=== PATIENT | male | born 1965 | race American Indian/Alaskan Native ===

== ENCOUNTER 2019-12-22 01:56 | Emergency (ER) | payer SELFPAY ==
[2019-12-22 03:20] LABS: Basophils % (Auto) 1.3 % (0.0-1.8); Eosinophils # (Auto) 0.1 K/mm3 (0.0-0.4); Eosinophils % (Auto) 2.4 % (0.0-4.3); Hematocrit 31.5 % (35.5-45.6); Hemoglobin 11.1 gm/dl (11.8-15.2); Lymphocytes # (Auto) 0.9 K/mm3 (1.2-5.4); Lymphocytes % (Auto) 23.4 % (13.4-35.0); Mean Corpuscular HGB Conc 35 % (32-34); Mean Corpuscular Volume 84 fl (84-94); Monocytes # (Auto) 0.3 K/mm3 (0.0-0.8); Platelet Count 153 K/mm3 (140-440); Red Blood Count 3.76 M/mm3 (3.65-5.03); Red Cell Distribution Width 17.7 % (13.2-15.2)
[2019-12-22 03:34] LABS: Calcium 9.1 mg/dL (8.4-10.2)
[2019-12-22] MEDS ORDERED: MECLIZINE 25 MG TAB PO ONE (06:27)
[2019-12-22] MEDS ORDERED: ONDANSETRON 4 MG ODT TAB PO ONE (06:27)
[2019-12-22] MEDS ORDERED: SODIUM CHLORIDE 0.9% 1000 ML 1,000 ML IV ONE (06:28)
[2019-12-22] MEDS ORDERED: ONDANSETRON 4 MG/2 ML INJ IV ONE (06:28)
--- NOTE | 2019-12-22 06:31 | Emergency Department Report ---
HPI - General Chief Complaint: Headache Time Seen by Provider: 12/22/19 06:08 - HPI HPI: This is a 54-year-old -[place] male presents to the emergency department from home with a complaint of some dizziness, nausea and vomiting since last night. The patient also complains of a generalized headache. The dizziness is a room spinning sensation. He denies any vision change, slurred speech, numbness or paresthesias, or any neurological deficits. He has a past medical history that includes gout, GERD, and hypertension. No recent travel or sick contacts at home. He is an occasional tobacco smoker but denies any illicit drug use. Patient has not taken anything for his symptoms other than his normal home medications. He denies any fever, chest pain, shortness of breath, cough, lower extremity swelling, diaphoresis. ED Past Medical Hx - Past Medical History Previous Medical History?: Yes Hx Hypertension: Yes Hx GERD: Yes Additional medical history: GOUT, Elevated Cholesterol - Surgical History Past Surgical History?: Yes Additional Surgical History: Hernia Repair - Social History Smoking Status: Current Every Day Smoker Substance Use Type: Marijuana - Medications Home Medications: Home Medications Medication Instructions Recorded Confirmed Last Taken Type Meclizine [Antivert] 25 mg PO TID PRN #20 tablet 12/22/19 Unknown Rx Ondansetron [Zofran Odt] 4 mg PO Q8HR PRN #12 tab.rapdis 12/22/19 Unknown Rx ED Review of Systems ROS: Stated complaint: DIZZINESS/HEADACHE/EMESIS Other details as noted in HPI Comment: All other systems reviewed and negative Constitutional: denies: chills, fever Eyes: denies: eye pain, vision change ENT: denies: ear pain, throat pain Respiratory: denies: cough, shortness of breath Cardiovascular: denies: chest pain, palpitations Gastrointestinal: nausea, vomiting. denies: abdominal pain Genitourinary: denies: dysuria, discharge Musculoskeletal: denies: back pain, arthralgia Skin: denies: rash, lesions Neurological: headache, vertigo. denies: weakness Physical Exam - Physical Exam Vital Signs: Vital Signs 12/22/19 02:03 Temperature 98.1 F Pulse Rate 68 Respiratory 12 Rate Blood Pressure 164/102 O2 Sat by Pulse 96 Oximetry Physical Exam: GENERAL: The patient is well-developed well-nourished. HENT: Normocephalic. Atraumatic. Patient has moist mucous membranes. EYES: Extraocular motions are intact. No nystagmus. NECK: Supple. Trachea is midline. CHEST/LUNGS: Clear to auscultation. There is no respiratory distress noted. HEART/CARDIOVASCULAR: Regular. There is no tachycardia. There is no murmur. ABDOMEN: Abdomen is soft, nontender. Patient has normal bowel sounds. SKIN: Skin is warm and dry. NEURO: The patient is awake, alert, and oriented. The patient is cooperative. The patient has no focal neurologic deficits. Normal speech. Cranial nerves II through XII grossly intact. No pronator drift or dysmetria. No facial asymmetry. MUSCULOSKELETAL: There is no tenderness or deformity. There is no limitation range of motion. There is no evidence of acute injury. ED Course Vital Signs 12/22/19 02:03 Temperature 98.1 F Pulse Rate 68 Respiratory 12 Rate Blood Pressure 164/102 O2 Sat by Pulse 96 Oximetry ED Medical Decision Making - Lab Data Result diagrams: 12/22/19 02:59 12/22/19 02:59 - Radiology Data Radiology results: report reviewed CT head/brain wo con INDICATION: headache, dizziness. TECHNIQUE: All CT scans at this location are performed using the following dose modulation technique: Automated exposure control. CONTRAST: None. COMPARISON: None available. FINDINGS: The ventricular system is appropriate in size and configuration without midline shift. Mild low density within the periventricular white matter is typical of chronic small vessel ischemic change. A small lacunar infarct is seen at the right thalamus. Negative for mass, stroke or hemorrhage. Imaged portions of the paranasal sinuses are clear. IMPRESSION: 1. Mild chronic small vessel ischemic change. 2. Chronic lacunar infarct right thalamus. - Medical Decision Making This patient presents to the emergency department with a complaint of some dizziness that appears to be consistent with vertigo, a frontal headache, and some nausea/vomiting. There is been no vomiting since arriving to the emergency department. On examination there is no focal, motor or sensory deficits and his cranial nerves are intact. CT scan of the head without contrast does not show any bleed, shift, mass, ischemia, or any other acute process. Patient's vital signs have been reassuring throughout his ED course including being afebrile. Labs have been mostly unremarkable including CBC, metabolic panel, troponin, TSH and blood alcohol level. There was very mild renal insufficiency with a GFR 55. The patient received antiemetics, Toradol, and Antivert. He was reevaluated multiple times over multiple hours and says he is feeling greatly improved. The patient was seen ambulatory in the emergency department and both appears and feels stable. He will be discharged home to follow-up with primary care and has been given a referral for neurology. He will return to the ER with any worsening of his symptoms or with any acute distress. Critical Care Time: No Critical care attestation.: If time is entered above; I have spent that time in minutes in the direct care of this critically ill patient, excluding procedure time. ED Disposition Clinical Impression: Vertigo, Dizziness, Nausea Hypertension Qualifiers: Hypertension type: essential hypertension Qualified Code(s): I10 - Essential (primary) hypertension Headache Qualifiers: Headache type: unspecified Headache chronicity pattern: unspecified pattern Intractability: not intractable Qualified Code(s): R51 - Headache Disposition: DC-01 TO HOME OR SELFCARE Is pt being admited?: No Condition: Stable Instructions: Vertigo (ED), Acute Headache (ED), Hypertension (ED), Dizziness (ED) Additional Instructions: Please follow-up with a primary care physician in the next few days and I am giving you a referral for some local primary care physicians and clinics. I am also giving you a referral for a local neurologist, Dr. Remy, to follow-up regarding the headache and dizziness. Please take your medications as pre scribed. Return to the emergency department with any worsening of your symptoms or with any acute distress. Prescriptions: Meclizine [Antivert] 25 mg PO TID PRN #20 tablet PRN Reason: Vertigo Ondansetron [Zofran Odt] 4 mg PO Q8HR PRN #12 tab.rapdis PRN Reason: Nausea Referrals: PRIMARY MD JOHN [Primary Care Provider] - 2-3 Days MARTÍN ACUÑA MD [Staff Physician] - 2-3 Days JEFF REMY MD [Referring] - 2-3 Days [facility] [Provider Group] - 2-3 Days Time of Disposition: 10:07
--- NOTE | 2019-12-22 06:31 | XRay Report ---
CHEST 1 VIEW INDICATION: chest pain. COMPARISON: None. FINDINGS: Support devices: None. Heart: Within normal limits. Lungs/Pleura: Mildly diminished lung volumes. No infiltrate. Additional findings: None. IMPRESSION: Mildly diminished lung volumes. Signer Name: Alfredo Larios MD Signed: 12/22/2019 6:27 AM Workstation Name: [id number]
--- NOTE | 2019-12-22 06:58 | Cat Scan Report ---
CT head/brain wo con INDICATION: headache, dizziness. TECHNIQUE: All CT scans at this location are performed using the following dose modulation technique: Automated exposure control. CONTRAST: None. COMPARISON: None available. FINDINGS: The ventricular system is appropriate in size and configuration without midline shift. Mild low density within the periventricular white matter is typical of chronic small vessel ischemic frias ge. A small lacunar infarct is seen at the right thalamus. Negative for mass, stroke or hemorrhage. Imaged portions of the paranasal sinuses are clear. IMPRESSION: 1. Mild chronic small vessel ischemic change. 2. Chronic lacunar infarct right thalamus. Signer Name: Alfredo Larios MD Signed: 12/22/2019 6:53 AM Workstation Name: [id number]
[2019-12-22] MEDS ORDERED: METOCLOPRAMIDE 10 MG/2 ML INJ IV ONE (09:18)
[2019-12-22] MEDS ORDERED: KETOROLAC 30 MG/1 ML INJ IV ONE (09:18)
[2019-12-22 10:23] VITALS: BP 160/96
== END 2019-12-22 10:21 | disposition home or self-care (01) ==
LOC: ED 01:56
DX: I10 Essential (primary) hypertension (principal); R42 Dizziness and giddiness; R51 Headache; R11.2 Nausea with vomiting, unspecified; K21.9 Gastro-esophageal reflux disease without esophagitis; E78.00 Pure hypercholesterolemia, unspecified; M10.9 Gout, unspecified; F17.200 Nicotine dependence, unspecified, uncomplicated; F12.90 Cannabis use, unspecified, uncomplicated; Z79.899 Other long term (current) drug therapy; Z98.890 Other specified postprocedural states
CPT/HCPCS: 36415; 70450; 71045; 80048; 84443; 84484; 85025; 93005; 96361; 96374; 96375; 99285; J1885; J2405; J2765; J7030; 80320; G0480